=== PATIENT | male | born 1985 | race Caucasian/White ===

== ENCOUNTER → 2021-05-21 08:28 | Outpatient (CLI) | payer BC, SELFPAY ==
--- NOTE | ~2021-05-21 | XR_ITS ---
XR wrist RT min 3V DATE: 05/21/2021 08:43 INDICATION: Right wrist pain TECHNIQUE: 4 views COMPARISON: None FINDINGS: No fracture or dislocation, periosteal reaction or bone destruction. No erosive change or c hondrocalcinosis. Joint spaces are preserved. IMPRESSION: Negative Reviewed, dictated and finalized at location A. AGE SORTER IMPRESSION: Negative
== END ==
PROVIDERS: PCP Family Medicine; Visit Provider Physician Assistant
DX: M25.531 Pain in right wrist (principal)
CPT/HCPCS: 73110

== ENCOUNTER 2023-10-30 01:17 | Day surgery (SDC) | payer OTHER, SELFPAY ==
[2023-10-20 08:47] VITALS: BMI 29.0
[2023-10-30 06:49] VITALS: BP 124/75; PULSE 66; RESP 16; TEMP 35.9; O2SAT 98; BMI 27.6
[2023-10-30] MEDS: LACTATED RINGERS 1,000 ML 150 ML IV CONT (06:57)
--- NOTE | 2023-10-30 07:15 | P.PNAN_ITS ---
Anes - Initial Pre Proc Eval Procedure: Operation Date: 10/30/23 08:00 Proposed Procedures p Esophagogastroduodenoscopy & Colonoscopy - Christophe Ross MD Date/Time: 10/30/23 07:15 Surgeon: Christophe Ross MD Pre Op Diagnosis: GERD, Fam. Hx. of Colon CA Patient Data Age: 37 Gender: M Height: 1.73 m Weight: 82.3 kg Last Vital Signs Temp 96.7 F L 10/30/23 06:49 Pulse 66 10/30/23 06:49 Resp 16 10/30/23 06:49 BP 124/75 10/30/23 06:49 Pulse Ox 98 10/30/23 06:49 O2 Del Method Room Air 10/30/23 06:49 Allergies Allergy/AdvReac Type Severity Reaction Status Date / Time No Known Allergies Allergy Verified 10/30/23 06:47 Home Medications Medication Instructions Recorded Confirmed Type albuterol sulfate 90 mcg/actuation See Rx Instructions .Route 04/15/22 10/30/23 Rx aerosol inhaler .COMPLEX #8.5 grams omeprazole 40 mg capsule,delayed See Rx Instructions .Route 11/25/22 10/30/23 Rx release .COMPLEX #90 caps levocetirizine 5 mg tablet (Xyzal) 5 mg PO DAILY 10/20/23 10/30/23 History Patient hx anesthesia problems: none Family hx anesthesia problems: none Results Review: All pre-operative results and documents have been reviewed as part of the pre- operative evaluation. [facility] Past Medical History Medical History Allergic rhinitis GERD (gastroesophageal reflux disease) Family History Family History Father Family history of diabetes mellitus in first degree relative Social History Social History Social History: Smoking status: Never smoker Second hand tobacco smoke exposure: No Alcohol intake: current Drinks per week: 4 Substance use: current Substance use type: marijuana Lack of Transportation: No Lack of Food: Never True Current Housing: I Have Housing Concerned About Future Housing: No Difficulty Paying Gas/Electric Bills: No Difficulty Paying for Meds: No Currently Unemployed: No Education: Decline to Answer Difficulty w/ Childcare or Family Care: No Living arrangements: with family Occupation/Education: occupation Gender identity (if verbalized by the patient): Male Sexual Orientation (if Verbalized by the Patient): Straight or Heterosexual Spiritual care concerns: No Anes - Eval Final PreProcedure Day of Procedure 10/30/23 07:15 Patient weight: normal Heart: regular rate and rhythm Lungs: clear to auscultation Airway: Mallampati scale class II Neurological: alert and oriented Last oral intake: >/= 8 hours ASA classification: II Emergent: no Anesthetic plan: proceed Anesthesia type and monitoring: general GIVS and standard monitoring Results Review: All pre-operative results and documents have been reviewed as part of the pre- operative evaluation. Screening, family hx of colon ca. Informed Consent: The patient's anesthetic plan and its attendant risks and benefits were discussed with the patient/family/POA. Questions were solicited and answers provided to the satisfaction of the patient/family/POA.
--- NOTE | 2023-10-30 07:58 | PM.HPGS ---
History of Present Illness History of Present Illness Consent: Risks, benefits, and alternatives have been discussed and questions answered. Patient agrees to proceed with procedure. Chief complaint: GERD, Fam. Hx. of Colon CA Narrative: Francois Curran is a 37 year old male with gerd for 20 years, omeprazole helps but never had egd. Also first colonoscopy- uncle and grandfather had colon cancer. Review of Systems Review of Systems: All systems reviewed & are unremarkable except as noted in HPI and below PMFSH Past Medical History Medical History (Updated 10/30/23 @ 08:02 by Christophe Ross MD) Allergic rhinitis Family history of colon cancer GERD (gastroesophageal reflux disease) Family History Family History Father Family history of diabetes mellitus in first degree relative Social History Social History Social History: Smoking status: Never smoker Second hand tobacco smoke exposure: No Alcohol intake: current Drinks per week: 4 Substance use: current Substance use type: marijuana Lack of Transportation: No Lack of Food: Never True Current Housing: I Have Housing Concerned About Future Housing: No Difficulty Paying Gas/Electric Bills: No Difficulty Paying for Meds: No Currently Unemployed: No Education: Decline to Answer Difficulty w/ Childcare or Family Care: No Living arrangements: with family Occupation/Education: occupation Gender identity (if verbalized by the patient): Male Sexual Orientation (if Verbalized by the Patient): Straight or Heterosexual Spiritual care concerns: No Meds Home Medications and Allergies Home Medications Medication Instructions Recorded Confirmed Type albuterol sulfate 90 mcg/actuation See Rx Instructions .Route 04/15/22 10/30/23 Rx aerosol inhaler .COMPLEX #8.5 grams omeprazole 40 mg capsule,delayed See Rx Instructions .Route 11/25/22 10/30/23 Rx release .COMPLEX #90 caps levocetirizine 5 mg tablet (Xyzal) 5 mg PO DAILY 10/20/23 10/30/23 History Allergies Allergy/AdvReac Type Severity Reaction Status Date / Time No Known Allergies Allergy Verified 10/30/23 06:47 Vital Signs Vital Signs - 24 hr 10/30/23 06:49 Temperature 96.7 F L Pulse Rate 66 Respiratory Rate 16 Blood Pressure 124/75 Pulse Oximetry 98 Oxygen Delivery Room Air Exam Const: General: comfortable and no acute distress HENMT: Face/Nose/Sinus: Normal nares present Eyes: General: appearance normal, both eyes and all related structures Neck: Neck: no JVD Resp: Auscultation: clear to auscultation bilaterally Cardio: Rate: regular rate Rhythm: regular rhythm GI: Inspection: non-distended GI Palp: Yes Soft to palpation Skin: General skin exam: normal color Neuro: General: gait normal Speech: normal speech Extrem: General: normal to inspection Psych: Mental Status: mental status grossly normal Assessment and Plan Assessment and plan (1) GERD (gastroesophageal reflux disease): Code(s): K21.9 - Gastro-esophageal reflux disease without esophagitis Status: Acute Assessment and Plan: egd already on ppi (2) Family history of colon cancer: Code(s): Z80.0 - Family history of malignant neoplasm of digestive organs Status: Acute Assessment and Plan: colonoscopy
--- NOTE | 2023-10-30 08:28 | SUR.OPER ---
EGD START TIME 806, END TIME 811. COLONOSCOPY START TIME 816, END TIME 826.
[2023-10-30 08:31] VITALS: BP 94/55; PULSE 53; RESP 20; O2SAT 97
[2023-10-30 08:41] VITALS: BP 100/64; PULSE 53; RESP 17; O2SAT 99
[2023-10-30 08:51] VITALS: BP 116/90; PULSE 54; RESP 21; O2SAT 100
== END 2023-10-30 09:10 | disposition home or self-care (01) ==
PROVIDERS: PCP Emergency Medicine; Visit Provider Internal Medicine Gastroenterology
PROC: 0DJ08ZZ Inspection of Upper Intestinal Tract, Via Natural or Artificial Opening Endoscopic (ICD-10-PCS; CPT 43235; principal; 2023-10-30 08:00)
DX: Z12.11 Encounter for screening for malignant neoplasm of colon (principal); K63.5 Polyp of colon; K57.30 Diverticulosis of large intestine without perforation or abscess without bleeding; K64.8 Other hemorrhoids; Z80.0 Family history of malignant neoplasm of digestive organs; K29.50 Unspecified chronic gastritis without bleeding; K31.7 Polyp of stomach and duodenum; K21.9 Gastro-esophageal reflux disease without esophagitis; Z79.51 Long term (current) use of inhaled steroids
CPT/HCPCS: 45385; 43239; 88305; J2001; J2704; J7120

== ENCOUNTER 2024-06-23 07:50 | Outpatient (CLI) | payer OTHER, SELFPAY ==
--- NOTE | ~2024-06-23 | US_ITS ---
EXAMINATION: US thyroid DATE: 06/23/2024 08:19 INDICATION: Mayte's thyroiditis TECHNIQUE: Multiple ultrasound images of the thyroid were obtained. COMPARISON: None. FINDINGS: The right thyroid lobe measures 4.6 x 1.7 x 1.8 cm. The left thyroid lobe measures 4.1 x 1.5 x 1.7 c m. Thyroid isthmus measures 3 mm in thickness. No discrete nodules identified. There is normal echote xture, echogenicity and vascular flow throughout the thyroid gland. IMPRESSION: 1. Normal thyroid ultrasound. Reviewed, dictated and finalized at location A. RTMENT MANAGER
== END 2024-06-23 07:51 | disposition home or self-care (01) ==
LOC: MICIMG 07:50
PROVIDERS: PCP Emergency Medicine; Visit Provider Emergency Medicine
DX: E06.3 Autoimmune thyroiditis (principal)
CPT/HCPCS: 76536

== ENCOUNTER 2025-04-13 01:51 | Day surgery (SDC) | payer OTHER, SELFPAY ==
[2025-04-07 15:07] VITALS: BMI 30.4
--- NOTE | 2025-04-07 15:18 | PC.NURSE ---
Addendum entered by Akhil Wyatt RN 04/07/25 15:39: PT TOLD TO FOLLOW DR KHAN'S INSTRUCTIONS FOR NPO STATUS AND ANY PRE OPERATIVE INSTRUCTIONS HE GAVE HIM. Original Note: [facility] has started construction of its new state of the art ER which will open Spring 2026. With this, we anticipate parking may be a challenge for some our surgical patients and families. Parking spaces are limited but are available for all Surgical, obstetrics, and ER patients sharing this lot. If you arrive and find you are having a hard time finding a parking space, please note that we understand the challenges, please drive around the hospital and park near Hospital Entrance 1. When you enter this entrance, you can ask a volunteer to direct or take you back to the surgical waiting area to check in. We appreciate everyone?s understanding of these expected challenges while we build for your future. Report to the Outpatient Waiting Room, entrance under the green pavilion located off [facility], at time 0630 on date 04/13/25. Planned Procedure Time: 0830.? Time changes happen often and if your time is changed the preop area will call you the afternoon before. - You and your visitor will be asked to self-screen and do not enter if you have any COVID symptoms. Please call surgeon if you need to reschedule. - A mask is optional within the hospital at this time. Patients may have clear liquids (water, carbonated beverages, clear teas, apple juice) until 3 hours prior to surgery with a maximum of 20 ounces. - No food from midnight until time of surgery and no smoking, or chewing tobacco (or any form of nicotine). No chewing gum, candy or mints. Take only the following medications with a SIP of water on the morning of surgery: BUSPIRONE, ESCITALAPRAN DO NOT STOP ANY OF YOUR OTHER PRESCRIPTION MEDICATIONS PRIOR TO SURGERY EXCEPT THE FOLLOWING Hold all vitamins and supplements for 3 days per anesthesiologist. Medications to discontinue per physician VITAMINS AND SUPPLEMENTS Date to take last dose 04/09/25 Please no make-up, nail frisian, hairspray, perfume, deodorant, or body powder the day of surgery.? No jewelry (including any body piercings) or valuables the day of surgery, leave them at home.? Please take a shower or bath the night before, or the morning of, surgery with an antibacterial soap.? Wear comfortable, loose fitting clothing.? Children are encouraged to wear pajamas. - Jewelry must be removed prior to entering the operating room.? Rings and piercings that are not removed may be cut off. - The hospital will not accept responsibility for valuables.? - Please leave all valuables, including medications, at home the day of surgery. If you are going home after surgery, a licensed national dedicated truck driver must drive you home.? - NO public transportation without another adult if you receive anesthesia. - We recommend that an adult stay with you for 24 hours following discharge. - We also recommend that you do not drive, make important decision, drink alcoholic beverages, or take any drugs that were not prescribed by your health care provider for at least 24 hours after your discharge time. Follow any additional instructions given to you from your surgeon. Telephone instructions given to ALFRED EDUARDO and asked if any additional questions and then verbalized understanding. Patient advised to call surgeon office or pre surgery nurse liaison [phone] if any additional questions.
--- NOTE | 2025-04-12 07:49 | PM.SD2 ---
Same Day Admit/Disch: HPI History of Present Illness Chief complaint: Rectal pain, bleeding Narrative: Francois Curran is a 39 year old male who was seen in the office for rectal pain with bleeding. He started noticing pain and bleeding with bowel movements 6 or 7 months ago. He had experienced some constipation then. He now has pain before during and after bowel movements with occasional blood on the toilet paper. He tried some [id number] suppositories and preparation H with no success. He had an EGD and colonoscopy done in October of 2023, both of which were negative. He was seen in the office and found to have a prolapsing distal rectal polyp with rectal tenderness increased anal sphincter tone. He is taken to surgery now for rectal exam under anesthesia, removal of the rectal polyp, and possible anal sphincterotomy. [facility] Past Medical History Medical History Family history of colon cancer Allergic rhinitis GERD (gastroesophageal reflux disease) Family History Family History Father Family history of diabetes mellitus in first degree relative Social History Social History Social History: Smoking status: Never smoker Second hand tobacco smoke exposure: No Alcohol intake: current Drinks per week: 4 Substance use: current Substance use type: marijuana Other substance usage details: occational Lack of Transportation: No Lack of Food: Never True Current Housing: I Have Housing Concerned About Future Housing: No Difficulty Paying Gas/Electric Bills: No Difficulty Paying for Meds: No Currently Unemployed: No Education: Decline to Answer Difficulty w/ Childcare or Family Care: No Living arrangements: with family Occupation/Education: occupation Gender identity (if verbalized by the patient): Male Sexual Orientation (if Verbalized by the Patient): Straight or Heterosexual Spiritual care concerns: No Same Day Admit/Disch: Med Pre-admit Medications Home Medications ?Medication ?Instructions ?Recorded ?Confirmed ?Type levocetirizine 5 mg tablet (Xyzal) 5 mg PO DAILY 10/20/23 04/13/25 History buspirone 5 mg tablet 5 mg PO BID 03/10/25 04/13/25 History escitalopram oxalate 10 mg tablet 10 mg PO DAILY 03/10/25 04/13/25 History omeprazole 40 mg capsule,delayed 20 mg .Route .COMPLEX 03/10/25 04/13/25 History release atomoxetine 80 mg capsule 80 mg PO DAILY 04/07/25 04/13/25 History ketorolac 10 mg tablet 10 mg PO Q6H 4 days #16 tabs 04/13/25 Rx oxycodone-acetaminophen 5 mg-325 0.5 - 1 tablet PO Q4H PRN pain #14 04/13/25 Rx mg tablet (Percocet) tabs Review of Systems Review of Systems All systems reviewed & are unremarkable except as noted in HPI and below (HPI) Exam Const: General: comfortable, no acute distress, alert and awake HENMT: Head: normocephalic and atraumatic Mouth: Yes Normal oral and palatal mucosa present Eyes: Conjunctivae: conjunctivae normal Pupils: Equal, round and reactive pupils present EOM: EOMs intact bilaterally Neck: Neck: normal visual inspection, no lymphadenopathy and nontender Resp: Effort & Inspection: normal respiratory effort Auscultation: clear to auscultation bilaterally Cardio: Rate: regular rate Rhythm: regular rhythm Heart sounds: no gallops, no murmurs and no rubs GI: Inspection: non-distended GI Palp: Yes Soft to palpation, No Tenderness to palpation present (GI), No Hepatomegaly present and No Splenomegaly present Rectal Exam: abnormal sphincter tone increased, tenderness and other (Rectal polyp protruding past anal verge.) Other: Tenderness and increased anal sphincter tone noted. Could not visualize an anal fissure. No exquisite tenderness in the anterior or posterior midline. Skin: Lesions: no lesions Rashes: no rashes Neuro: General: no focal motor deficits and CN's II-XI intact bilaterally Cranial nerves: Yes Equal, round and reactive pupils present, Yes Bilaterally intact EOM present, Yes facial symmetry and Yes Midline tongue present Speech: normal speech Motor exam (neuro): 5/5 motor strength present throughout and Motor abnormalities not present Extrem: General: no clubbing, cyanosis or edema and edema Psych: Affect: normal affect Thought process: Normal thought process present Insight: Good insight present (Psych) DS: Summary Time Spent with Patient Time attestation: Total time spent providing and/or coordinating discharge services: DS: Admitting Diagnosis Discharge Date 04/13/2025 Admitting Diagnosis Rectal pain and bleeding Rectal polyp-plan to proceed with rectal exam under anesthesia. It is possible that the polyp is causing the bleeding and pain. This will be removed. If there is an anal fissure present, will likely go ahead with anal sphincterotomy as well. I discussed the procedure including the risks, benefits, usual recovery with the patient. All questions were answered. He wishes to proceed. DS: Discharge Diagnosis Discharge Diagnosis (1) Rectal polyp: Code(s): K62.1 - Rectal polyp Status: Chronic Assessment and Plan: 2 small rectal polyps, both removed at surgery. (2) Thrombosed external hemorrhoid: Code(s): K64.5 - Perianal venous thrombosis Status: Chronic Assessment and Plan: Right posterior thrombosed external hemorrhoid, removed at surgery (3) Hemorrhoids, internal, with bleeding: Code(s): K64.8 - Other hemorrhoids Status: Chronic Assessment and Plan: To internal hemorrhoids, both rubber-band ligated. Discharge Plan Discharge Patient Disposition: Home Discharge Instructions: Discharge Instructions for Anorectal Surgery Dr. Tomlinson 1. May discharge from Outpatient Surgery area or Surgical Floor when stable per protocol. 2. Activity: Remove dressing and start Sitz baths in a.m. following surgery. Once at home, all patients should take 10-20 minute Sitz baths at least two times per day and as needed after each bowel movement. Rest around the house for the next 1-2 days, taking frequent walks. No driving for 2-3 days or while taking narcotic pain medications. 3. Diet: Regular diet with 6-8 glasses of water per day. Eat plenty of fruits and vegetables. 4. Medications: ? Resume all home medications. ? Metamucil 1 tablespoon PO twice a day ? Mineral Oil 1 tablespoon PO twice a day ? Percocet 5/325 0.5 PO q 4 hours as needed for moderate pain. ? Percocet 5/325 1 PO q 6 hours as needed for severe pain. ? Toradol 10 mg PO q 6 hours as needed for moderate pain. ? Acetaminophen 650 mg PO q 6 hours as needed for mild pain. Prescriptions for the above medications will be provided at the time of discharge or they can be bought [id number]. 5. Follow-up: call office for appointment in 10-14 days or as previously scheduled. 6. Call office if: ? Sudden increase in pain, swelling or incisional drainage or bleeding occurs. ? Fever > 101 degrees F. ? Nausea and vomiting occur. ? Inability to urinate. Patient Language: Maori Stand Alone Forms: General Discharge Instructions Follow-up/Referrals: Bud Tomlinson MD [Physician, General Surgery] - 2 Weeks Discharge Medications: New ketorolac 10 mg tablet 10 mg PO Q6H 4 Days Qty: 16 0RF oxycodone-acetaminophen [Percocet] 5-325 mg tablet 0.5 - 1 tablet PO Q4H PRN (Reason: pain) Qty: 14 0RF Continued buspirone 5 mg tablet 5 mg PO BID omeprazole 40 mg capsule,delayed release(DR/EC) 20 mg .ROUTE .COMPLEX Rx Instructions: 20 mg; escitalopram oxalate 10 mg tablet 10 mg PO DAILY levocetirizine [Xyzal] 5 mg Tablet 5 mg PO DAILY atomoxetine 80 mg capsule 80 mg PO DAILY
[2025-04-13] VITALS (7 sets, daily range): BP systolic 101–138; BP diastolic 50–75; PULSE 71–86; RESP 12–20; TEMP 36.3–36.6; O2SAT 95–100
[2025-04-13 10:08] LABS: Hematocrit 43.1 % (42.0-52.0); Hemoglobin 14.5 g/dL (14.0-18.0); Immature Granulocyte Percent A 0.1 % (0-0.5); Lymphocytes Absolute Auto 2.20 K/mm3 (0.9-3.2); Mean Corpuscular HGB Conc 33.6 g/dl (32-36); Mean Corpuscular Hemoglobin 30.8 pg (26-34); Mean Corpuscular Volume 91.5 fl (80-100); Nucleated Red Blood Cells Absolute Auto 0.000 K/mm3 (0.0-0.012); Nucleated Red Blood Cells Perc 0.0 % (0.0-0.2); Platelet Count Result 179 k/mm3 (150-375); Red Blood Count 4.71 M/mm3 (4.6-6.20); White Blood Count 6.8 K/mm3 (4.5-10.0)
[2025-04-13] MEDS: ACETAMINOPHEN 500 MG TABLET 1000 MG PO (10:15)
[2025-04-13] MEDS: LACTATED RINGERS 1,000 ML 30 ML IV CONT (10:15)
[2025-04-13] MEDS: KETOROLAC 15 MG/ML VIAL (*BKC) IV PUSH (10:15)
--- NOTE | 2025-04-13 10:34 | WPDANESEPPF ---
Anes - Initial Pre Proc Eval Procedure: Operation Date: 04/13/25 11:30 Proposed Procedures p Rectal Examination Under Anesthesia, Removal Rectal Polyp, Possible Sphincterotomy - Bud Tomlinson MD Date/Time: 04/13/25 10:34 Surgeon: Bud Tomlinson MD Pre Op Diagnosis: Rectal pain, bleeding Patient Data Age: 39 Gender: M Height: 1.73 m Weight: 95 kg Last Vital Signs Temp 36.6 C 04/13/25 10:15 Pulse 85 04/13/25 10:15 Resp 16 04/13/25 10:15 BP 138/75 04/13/25 10:15 Pulse Ox 99 04/13/25 10:15 O2 Del Method Room Air 04/13/25 10:15 Allergies Allergy/AdvReac Type Severity Reaction Status Date / Time No Known Allergies Allergy Verified 04/07/25 15:09 Home Medications ?Medication ?Instructions ?Recorded ?Confirmed ?Type levocetirizine 5 mg tablet (Xyzal) 5 mg PO DAILY 10/20/23 04/13/25 History buspirone 5 mg tablet 5 mg PO BID 03/10/25 04/13/25 History escitalopram oxalate 10 mg tablet 10 mg PO DAILY 03/10/25 04/13/25 History omeprazole 40 mg capsule,delayed 20 mg .Route .COMPLEX 03/10/25 04/13/25 History release atomoxetine 80 mg capsule 80 mg PO DAILY 04/07/25 04/13/25 History Laboratory Tests 04/13/25 10:03 WBC 6.8 K/mm3 (4.5-10.0) RBC 4.71 M/mm3 (4.6-6.20) Hgb 14.5 g/dL (14.0-18.0) Hct 43.1 % (42.0-52.0) MCV 91.5 fl (80-100) MCH 30.8 pg (26-34) MCHC 33.6 g/dl (32-36) RDW 12.3 % (11.5-14.5) Plt Count 179 k/mm3 (150-375) MPV 10.3 fl (7.4-10.4) Immature Gran % (Auto) 0.1 % (0-0.5) Neut % (Auto) 53.5 % (45.5-73.1) Lymph % (Auto) 32.4 % (18.3-44.2) [place] % (Auto) 10.8 H % (2.6-8.5) Eos % (Auto) 2.2 % (0-4.4) Baso % (Auto) 1.0 % (0.2-1.2) Lymph # (Auto) 2.20 K/mm3 (0.9-3.2) [place] # (Auto) 0.7 H K/mm3 (0.1-0.6) Eos # (Auto) 0.2 K/mm3 (0-0.3) Baso # (Auto) 0.1 K/mm3 (0.0-0.1) Abs Immat Gran (auto) 0.01 K/mm3 (0.00-0.031) Absolute Neuts (auto) 3.6 K/mm3 (1.3-6.7) Absolute Nucleated RBC 0.000 K/mm3 (0.0-0.012) Nucleated RBC % 0.0 % (0.0-0.2) Patient hx anesthesia problems: none Family hx anesthesia problems: none Results Review: All pre-operative results and documents have been reviewed as part of the pre-operative evaluation. [facility] Past Medical History Medical History Family history of colon cancer Allergic rhinitis GERD (gastroesophageal reflux disease) Family History Family History Father Family history of diabetes mellitus in first degree relative Social History Social History Social History: Smoking status: Never smoker Second hand tobacco smoke exposure: No Alcohol intake: current Drinks per week: 4 Substance use: current Substance use type: marijuana Other substance usage details: occational Lack of Transportation: No Lack of Food: Never True Current Housing: I Have Housing Concerned About Future Housing: No Difficulty Paying Gas/Electric Bills: No Difficulty Paying for Meds: No Currently Unemployed: No Education: Decline to Answer Difficulty w/ Childcare or Family Care: No Living arrangements: with family Occupation/Education: occupation Gender identity (if verbalized by the patient): Male Sexual Orientation (if Verbalized by the Patient): Straight or Heterosexual Spiritual care concerns: No Anes - Eval Final PreProcedure Day of Procedure 12/10/25 10:34 Patient weight: obese Heart: regular rate and rhythm Lungs: clear to auscultation Airway: Mallampati scale class II Neurological: alert and oriented Last oral intake: >/= 8 hours ASA classification: II Emergent: no Anesthetic plan: proceed Anesthesia type and monitoring: general ETT and standard monitoring Results Review: All pre-operative results and documents have been reviewed as part of the pre-operative evaluation. Informed Consent: The patient's anesthetic plan and its attendant risks and benefits were discussed with the patient/family/POA. Questions were solicited and answers provided to the satisfaction of the patient/family/POA.
--- NOTE | 2025-04-13 10:40 | WPDHPUPDATE1 ---
History and Physical Update Update Date/Time: 04/13/25 10:40 History and Physical has been reviewed, including an updated exam of the patient. There are NO changes in the patient's condition. Risks, benefits, and alternatives have been discussed and questions answered. Patient agrees to proceed with procedure.
[2025-04-13] MEDS: ceFAZolin 2 GM in SODIUM CHLORIDE 0.9% IV 50 ML 100 ML IVPB (11:03)
--- NOTE | 2025-04-13 11:34 | S_PTH ---
PATIENT: Francois Curran LOC: [facility] U#:[id number] AGE/SX: 39/M ROOM: RE04/13/[address]: Bud Tomlinson MD : 1985 BED: DIS: 04/13/2025 SPEC #: [id number] RECD: 04/13/25 13:21 STATUS: PHAN REQ #: [id number] PATSY: 04/13/25 11:[address]: Bud Tomlinson DEPT: [facility] Surgical RECD BY: Jesika Malcolm MLT, ([facility]) ENTERED: 04/13/25 13:21 SP TYPE: Surgical OTHR DR: Sidney Almonte MD Tissues: A - Polyp B - Polyp Procedures: Hematoxylin and Eosin Stain Gross and Microscopic Level 4
[2025-04-13] MEDS: BUPIVACAINE/EPINEPHRINE 0.5% 50 ML VIAL 60 ML INFILTRATE (11:41)
--- NOTE | 2025-04-13 11:57 | P.OP_ITS ---
Procedure Note - Detailed Date of Procedure 04/13/25 Pre-op Diagnosis Rectal polyp, possible anal fissure Post-op Diagnosis Other (Rectal polyps x2, thrombosed external hemorrhoid, internal hemorrhoids) Procedure Performed Excision left posterior thrombosed external hemorrhoid with associated rectal polyp, excision right posterior rectal polyp, rubber-band ligation internal hemorrhoids Surgeon Bud Tomlinson MD [employer] Irma Dougherty [employer] Anesthesia General and Local Indications Patient has been having rectal pain and bleeding. This is associated with bowel movements. Exam in the office showed a prolapsing rectal polyp. He is thought to also have possibly an anal fissure. He is taken to surgery now for rectal exam under anesthesia, removal rectal polyp, possible anal sphincterotomy. Findings Patient had no anal fissure. He actually had 2 rectal polyps, both were floppy and could possibly be fibroepithelial polyps. One was in the right posterior location. The other was in the left posterior location and was very close to a thrombosed external hemorrhoid in the left posterior location. The thrombosed hemorrhoid looked old but still had some clotted blood in its center, it was not distended with clot. Additionally, the patient had right posterior internal hemorrhoids and right anterior internal hemorrhoids which were rubber-band ligated. Description of Procedure Patient was taken to surgery and induced into general anesthesia. He was then turned and placed in prone lisa-knife position. The buttocks were taped apart. Prep and drape was carried out. Rectal exam was then carried out both digitally and with Hill-Gutierrez anoscope so. Findings were as above. I then infiltrated local anesthetic using 20 cc deep subdermal and 20 cc intrasphincteric. I removed 1st the right posterior rectal polyp which was probably the largest of the 2. It was cauterized at its base and removed. It was passed off as right posterior rectal polyp. The base was cauterized and made hemostatic. I then turned my attention to the left posterior polyp which was very close to the thrombosed external hemorrhoid in the left posterior position. With the Hill-Gutierrez anoscope in position, I excised both the polyp which was more internal and extended this ellipse to excise the thrombosed external hemorrhoid with the same specimen. This was passed off in formalin labeled appropriately. I then used running locking chromic suture to close the wound. Hemostasis was good with the suture. I then exposed both the right posterior internal hemorrhoid followed by the right anterior internal hemorrhoid. Both of these were rubber-band ligated. Additional review of the inguinal canal showed no additional pathology. Hemostasis was good. The rectum was dressed with Xeroform gauze, fluffs, Medipore tape, and Promise panties. Patient was then returned to a supine position, awakened and extubated. He transferred to recovery in good condition. Estimated Blood Loss -5 Drains No Packing No Pathology Yes (Right posterior rectal polyp, left posterior rectal polyp with thrombosed external hemorrhoid) Complications None Condition Stable Disposition PACU [facility] Billing Surgery - Charge Forward: Surgery Billing (Excision left posterior thrombosed external hemorrhoid with associated rectal polyp, excision right posterior rectal polyp, rubber-band ligation internal hemorrhoids)
== END 2025-04-13 13:21 | disposition home or self-care (01) ==
PROVIDERS: PCP Emergency Medicine; Visit Provider Surgery
PROC: (CPT 46320; principal; 2025-04-13 11:30)
DX: K64.5 Perianal venous thrombosis (principal); K62.1 Rectal polyp; K64.8 Other hemorrhoids; G89.18 Other acute postprocedural pain; K21.9 Gastro-esophageal reflux disease without esophagitis; F12.90 Cannabis use, unspecified, uncomplicated; E66.9 Obesity, unspecified; Z68.31 Body mass index [BMI] 31.0-31.9, adult; Z79.891 Long term (current) use of opiate analgesic; Z80.0 Family history of malignant neoplasm of digestive organs
CPT/HCPCS: 46320; 46922; 46221; 36415; 85025; 88305; J0690; A9270; J1100; J1885; J2003; J2250; J2405; J2704; J3010; J7120